=== PATIENT | female | born 1985 ===

== ENCOUNTER 2021-06-18 14:19 | Outpatient (CLI) | payer OTHER | END 2021-06-18 15:31 | disposition home or self-care (01) | LOC: PRENATAL 14:19 | PROVIDERS: ATTEND Obstetrics & Gynecology Maternal & Fetal Medicine | DX: O35.0XX1 Maternal care for (suspected) central nervous system malformation in fetus, fetus 1 (principal); O35.3XX1 Maternal care for (suspected) damage to fetus from viral disease in mother, fetus 1; O98.512 Other viral diseases complicating pregnancy, second trimester; O09.512 Supervision of elderly primigravida, second trimester; O99.891 Other specified diseases and conditions complicating pregnancy; Z36.89 Encounter for other specified antenatal screening; Z3A.22 22 weeks gestation of pregnancy ==

== ENCOUNTER 2021-10-04 14:49 | Outpatient (CLI) | payer OTHER | END 2021-10-04 16:06 | disposition home or self-care (01) | LOC: PRENATAL 14:49 | PROVIDERS: ATTEND Obstetrics & Gynecology Maternal & Fetal Medicine | DX: O26.843 Uterine size-date discrepancy, third trimester (principal); O36.8131 Decreased fetal movements, third trimester, fetus 1; O09.513 Supervision of elderly primigravida, third trimester; Z36.89 Encounter for other specified antenatal screening; Z3A.37 37 weeks gestation of pregnancy ==